=== PATIENT | female | born 2000 | race Caucasian/White ===

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

== ENCOUNTER → 2023-04-01 | Outpatient (CLI) | payer OTHER, SELFPAY ==
[~2023-04-01] MED LIST changes: +ETON68IM SC; -NEXP1IMP SC
[2023-04-01 15:44] LABS: HEMATOCRIT 39.3 % (36.0-47.0); MEAN CORPUSCULAR HEMOGLOBIN 31.2 pg (27.0-33.0); MEAN CORPUSCULAR HGB CONC 33.1 g/dl (32.0-36.5); MEAN CORPUSCULAR VOLUME 94.2 fl (80.0-96.0); PLATELET COUNT, AUTOMATED 311 10^3/uL (150-450); RED BLOOD COUNT 4.17 10^6/uL (4.00-5.40); WHITE BLOOD COUNT 12.7 10^3/uL (4.0-10.0)
[2023-04-01 16:37] LABS: HIV 1&2 SCREEN NEGATIVE (NEGATIVE)
[2023-04-01 16:45] LABS: HEPATITIS C VIRUS ABY INDEX < 0.02 INDEX (<0.8)
[2023-04-01 17:10] LABS: CHLAMYDIA DNA AMPLIFICATION NEGATIVE (NEGATIVE); GC DNA AMPLIFICATION NEGATIVE (NEGATIVE)
== END ==
LOC: M PLALAB 12:28
PROVIDERS: ATTEND Advanced Practice Midwife
DX: Z34.01 Encounter for supervision of normal first pregnancy, first trimester (principal); Z3A.00 Weeks of gestation of pregnancy not specified
CPT/HCPCS: 36415; 85027; 86762; 86780; 86803; 86850; 86900; 86901; 87086; 87340; 87389; 87810; 87850; G0463

== ENCOUNTER 2023-04-22 16:33 | Emergency (ER) | payer MEDICAID, SELFPAY ==
[~2023-04-22] VITALS: Ht 149.9 cm; Wt 39.7 kg
[2023-04-22 16:35] VITALS: BP 113/56; TEMP 97.6; O2SAT 18
[2023-04-22] MEDS ORDERED: PREN1CHW4 PO (16:41)
[2023-04-22] MEDS ORDERED: FOLTTAB9 PO (16:41)
[2023-04-22 17:20] LABS: BASO # 0.1 10^3/uL (0.0-0.2); BASO % 0.7 % (0.0-1.0); EOS # 0.1 10^3/uL (0.0-0.5); HEMATOCRIT 37.9 % (36.0-47.0); HEMOGLOBIN 13.3 g/dl (12.0-15.5); LYMPH # 1.4 10^3/uL (1.5-5.0); LYMPH % 13.8 % (24.0-44.0); MEAN CORPUSCULAR HGB CONC 35.1 g/dl (32.0-36.5); MEAN CORPUSCULAR VOLUME 91.3 fl (80.0-96.0); MONO # 0.8 10^3/uL (0.0-0.8); MONO % 7.4 % (2.0-8.0); NEUTROPHILS % 76.8 % (36.0-66.0); PLATELET COUNT, AUTOMATED 280 10^3/uL (150-450); RED BLOOD COUNT 4.15 10^6/uL (4.00-5.40); WHITE BLOOD COUNT 10.4 10^3/uL (4.0-10.0)
[2023-04-22 17:36] LABS: BLOOD UREA NITROGEN 9 MG/DL (9-23); CALCIUM LEVEL 9.4 MG/DL (8.5-10.1); CARBON DIOXIDE LEVEL 24 MMOL/L (20-31); CHLORIDE LEVEL 103 MMOL/L (98-107); CREATININE FOR GFR 0.49 MG/DL (0.55-1.30); GLOMERULAR FILTRATION RATE > 60.0 (>60); GLUCOSE, FASTING 77 MG/DL (60-100); SODIUM LEVEL 136 MMOL/L (136-145)
[2023-04-22 17:51] LABS: HCG, SERUM QUANTITATIVE 17510.7 MIU/ML (<4.2)
== END 2023-04-22 19:22 | disposition left against medical advice (07) ==
LOC: M ED 16:33
DX: Z53.21 Procedure and treatment not carried out due to patient leaving prior to being seen by health care provider (principal)

== ENCOUNTER 2023-10-05 11:48 | Inpatient (IN) | payer OTHER, MEDICAID ==
[~2023-10-05] VITALS: Ht 149.9 cm; Wt 57.7 kg
[~2023-10-05 11:48] MED LIST changes: +FOLTTAB9 PO; +PREN1CHW4 PO
[2023-10-05 11:55] VITALS: BP 120/70; O2SAT 100
[2023-10-05] MEDS ORDERED: LIDOCAINE 1% MDV 20ML VIAL INFIL PRN (12:05)
[2023-10-05] MEDS ORDERED: OXYTOCIN INJ 10UNITS/ML 1ML VIAL IM PRN (12:05)
[2023-10-05] MEDS ORDERED: CARBOPROST TROMETHAMINE 250 MCG/ML AMP IM PRN (12:05)
[2023-10-05] MEDS ORDERED: METHYLERGONOVINE MALEATE 0.2MG/ML 1ML VIAL IM PRN (12:05)
[2023-10-05] MEDS ORDERED: TRANEXAMIC ACID INJection 1,000 MG in NS 100 ML IV PRN (12:05)
[2023-10-05] MEDS ORDERED: OXYTOCIN DRIP 30 UNITS in IV 1 EA IV PRN (12:05)
[2023-10-05] MEDS: PROMETHAZINE 25MG/ML 1ML VIAL IM ONE (12:20)
[2023-10-05 13:07] VITALS: BP 103/68
[2023-10-05 13:27] LABS: HEMATOCRIT 31.8 % (36.0-47.0); HEMOGLOBIN 10.4 g/dl (12.0-15.5); MEAN CORPUSCULAR HEMOGLOBIN 27.7 pg (27.0-33.0); MEAN CORPUSCULAR HGB CONC 32.7 g/dl (32.0-36.5); MEAN CORPUSCULAR VOLUME 84.8 fl (80.0-96.0); PLATELET COUNT, AUTOMATED 312 10^3/uL (150-450); RED BLOOD COUNT 3.75 10^6/uL (4.00-5.40); WHITE BLOOD COUNT 10.2 10^3/uL (4.0-10.0)
[2023-10-05 14:26] VITALS: BP 107/69
[2023-10-05] MEDS: LR 1,000 ML IV SCH (14:26)
[2023-10-05] MEDS: BUTORPHANOL 2 MG/ML 1ML VIAL IV ONE (14:27)
[2023-10-05] MEDS: PROMETHAZINE 25MG/ML 1ML VIAL IV ONE (14:32)
[2023-10-05 14:33] LABS: HEPATITIS C VIRUS ABY INDEX < 0.02 INDEX (<0.8)
[2023-10-05 14:40] LABS: APPEARANCE, URINE CLOUDY (CLEAR); BACTERIA, URINE AUTO 1+ (NEGATIVE); BILIRUBIN, URINE AUTO NEGATIVE (NEGATIVE); BLOOD, URINE BLOOD 1+ (NEGATIVE); COLOR, URINE YELLOW (YELLOW); GLUCOSE, URINE (UA) AUTO NEGATIVE (NEGATIVE); KETONE, URINE AUTO 1+ mg/dL (NEGATIVE); LEUKOCYTE ESTERASE, URINE AUTO 1+ (NEGATIVE); MUCUS, URINE SMALL (NEGATIVE); NITRITE, URINE AUTO NEGATIVE (NEGATIVE); PROTEIN, URINE AUTO 1+ mg/dL (NEGATIVE); RBC, URINE AUTO 1 /HPF (0-3); SPECIFIC GRAVITY URINE AUTO 1.024 (1.002-1.035); SQUAMOUS EPITHELIAL CELL UR AU 5 /HPF (0-6); UROBILINOGEN, URINE AUTO 0.2 mg/dL (0.0-2.0); WBC, URINE AUTO 10 /HPF (0-3)
[2023-10-05 15:27] VITALS: BP 98/60
[2023-10-05 16:27] VITALS: BP 92/55
== END 2023-10-05 17:35 | disposition home or self-care (01) | DRG 560 ==
LOC: M LDI 11:48
PROVIDERS: ADMIT Advanced Practice Midwife; ATTEND Advanced Practice Midwife
DX: O80 Encounter for full-term uncomplicated delivery (principal); Z88.0 Allergy status to penicillin; Z91.048 Other nonmedicinal substance allergy status; Z3A.39 39 weeks gestation of pregnancy